=== PATIENT | male | born 1995 | race Caucasian/White ===

== ENCOUNTER 2017-02-01 19:47 | Emergency (ER) | payer OTHER ==
[~2017-02-01] VITALS: Ht 182.9 cm; Wt 114.0 kg
[2017-02-01 19:49] VITALS: TEMP 37.2; Ht 182.9 cm; Wt 114.0 kg
[2017-02-01] MEDS ORDERED: SODIUM CHLORIDE 0.9% 1000ML 2,000 ML IV STA (20:11)
[2017-02-01] MEDS ORDERED: METHYLPREDNISOLONE 125 MG VIAL IV STA (20:11)
[2017-02-01] MEDS ORDERED: DiphenhydrAMINE HCL 50 MG/ML VIAL IV STA (20:11)
[2017-02-01] MEDS ORDERED: FAMOTIDINE IV INJ 40 MG in DEXTROSE 5% 100ML 100 ML IV SCH (20:15)
--- NOTE | 2017-02-01 20:28 | DIAGNOSTIC IMAGING REPORT ---
CHEST ONE VIEW PORTABLE CLINICAL HISTORY: Shortness of breath. COMPARISON STUDY: No previous studies for comparison. FINDINGS: Lung volumes are normal. There is no pneumothorax or pleural effusion. Cardiac size is normal. Mediastinal contours are normal. There is no evidence of pulmonary edema. IMPRESSION: No acute cardiopulmonary findings. Electronically signed by: Gerald Medina M.D. 02/01/2017 8:27 PM Dictated Date/Time: 02/01/2017 8:27 PM
[2017-02-01 20:38] LABS: BASO % 0.1 %; BASO ABS # 0.01 K/uL (0-0.2); COMPLETE YES; EOS % 0.1 %; HEMATOCRIT 47.5 % (42-52); IG% 0.2 %; LYMPH ABS # 0.75 K/uL (1.2-3.4); MEAN CELL VOLUME 89.3 fL (80-100); MEAN CORPUSCULAR HEMOGLOBIN 32.1 pg (25-34); MEAN PLATELET VOLUME 10.9 fL (7.4-10.4); MONO % 4.3 %; NEUT % 89.3 %; PLATELET COUNT 152 K/uL (130-400); RED BLOOD COUNT 5.32 M/uL (4.7-6.1); WHITE BLOOD COUNT 12.47 K/uL (4.8-10.8)
[2017-02-01 21:00] LABS: ALKALINE PHOSPHATASE 77 U/L (45-117); ALT/SGPT 23 U/L (12-78); AST/SGOT 24 U/L (15-37); BLOOD UREA NITROGEN 16 mg/dl (7-18); BUN/CREATININE RATIO 13.2 (10-20); CARBON DIOXIDE 25 mmol/L (21-32); CHLORIDE 108 mmol/L (98-107); GLUCOSE 85 mg/dl (70-99); SODIUM 143 mmol/L (136-145)
[2017-02-01] MEDS ORDERED: PRED50TA PO (22:59)
[2017-02-01 23:18] VITALS: BP 113/53; PULSE 63; O2SAT 98
--- NOTE | 2017-02-02 01:29 | EMERGENCY ROOM VISIT NOTE ---
History Report prepared by Bubbaibcornelia: Chivo Anders Under the Supervision of: Dr. Patrice Pizarro D.O. First contact with patient: 19:52 Chief Complaint: SHORTNESS OF BREATH Stated Complaint: SOB,SWEATING,SHIVERING,HEADACHE History of Present Illness The patient is a 21 year old male who presents to the Emergency Room with complaints of constant shortness of breath starting earlier today. He reports his discomfort as a 4/10 in severity. The patient states that he was cooking chick peas and added elise to his pressure cooker. He reports that he then at the [employer] an hour later. He reports that later that day he started to notice a rash on his waistline which then spread to his legs, chest, and arm around noon. The patient reports that rash was itchy and tender to palpation. The patient states that he went walking for 2.5-3 hours in [facility]. He reports that he started to have a headache and felt short of breath. The patient states that when he got back to the house he felt dehydrated, hot, and experienced diaphoresis on his head and elbows. He reports that he took a cold shower, but started shivering. The patient states that he then wrapped himself in a blanket but then became hot again. The patient reports that he currently has a dry mouth but no problem swallowing. He denies any medical issues, medications, allergies, change in vision, fevers, chest pain, nausea, vomiting, diarrhea, pain with urination, and melena. Source of History: patient Onset: earlier today Position: other (global) Symptom Intensity: 4/10 Quality: other (06/03) Timing: resolved Associated Symptoms: + chills, + headache, + diaphoresis Review of Systems See HPI for pertinent positives & negatives. A total of 10 systems reviewed and were otherwise negative. Past Medical & Surgical Surgical Problems: (1) History of hip surgery (2) Status post genital surgery Family History FH: cancer FH: gallbladder disease FH: heart disease FHx: hypertension Social History Smoking Status: Never Smoker Smokeless Tobacco Use: No Alcohol Use: occasionally Drug Use: none Marital Status: single Housing Status: lives alone Occupation Status: [employer] student Current/Historical Medications Scheduled Prednisone (Prednisone), 50 MG PO DAILY Allergies Coded Allergies: No Known Allergies (Unverified , 02/01/17) Physical Exam Vital Signs Date Time Temp Pulse Resp B/P (MAP) Pulse Ox O2 Delivery O2 Flow Rate FiO2 02/01/17 23:18 63 18 113/53 98 Room Air 02/01/17 22:16 80 16 121/69 100 Room Air 02/01/17 20:20 100 Room Air 02/01/17 20:10 91 02/01/17 19:49 37.2 95 20 110/64 99 Room Air Physical Exam GENERAL: Sitting up in bed, alert, disheveled, well appearing, well nourished, no acute distress, non-toxic EYE EXAM: normal conjunctiva, PERRL and EOM's grossly intact OROPHARYNX: no exudate, no erythema, lips, buccal mucosa, and tongue normal and mucous membranes are moist NECK: supple, no nuchal rigidity, no adenopathy, non-tender. No stridor. LUNGS: Clear to auscultation. Normal chest wall mechanics HEART: no murmurs, S1 normal and S2 normal ABDOMEN: abdomen soft, non-tender, normo-active bowel sounds, no masses, no rebound or guarding. BACK: Back is symmetrical on inspection and there is no deformity, no midline tenderness, no CVA tenderness. SKIN: Diffusive raised erythema rash from abdomen to groin and flexor joints of upper and lower extremities. Blanches. No petechiae UPPER EXTREMITIES: upper extremities are grossly normal. LOWER EXTREMITIES: No pitting edema. NEURO EXAM: Normal sensorium, cranial nerves II-XII grossly intact, normal speech, no gross weakness of arms, no gross weakness of legs. Gross sensation intact. Medical Decision & Procedures ER Provider Diagnostic Interpretation: Radiology results as stated below per my review and the radiologist's interpretation: CHEST ONE VIEW PORTABLE CLINICAL HISTORY: Shortness of breath. COMPARISON STUDY: No previous studies for comparison. FINDINGS: Lung volumes are normal. There is no pneumothorax or pleural effusion. Cardiac size is normal. Mediastinal contours are normal. There is no evidence of pulmonary edema. IMPRESSION: No acute cardiopulmonary findings. Electronically signed by: Gerald Medina M.D. 02/01/2017 8:27 PM Dictated Date/Time: 02/01/2017 8:27 PM Laboratory Results 02/01/17 20:19 Red Blood Count 5.32, Mean Corpuscular Volume 89.3, Mean Corpuscular Hemoglobin 32.1, Mean Corpuscular Hemoglobin Concent 36.0, Mean Platelet Volume 10.9, Neutrophils (%) (Auto) 89.3, Lymphocytes (%) (Auto) 6.0, Monocytes (%) (Auto) 4.3, Eosinophils (%) (Auto) 0.1, Basophils (%) (Auto) 0.1, Neutrophils # (Auto) 11.14, Lymphocytes # (Auto) 0.75, Monocytes # (Auto) 0.53, Eosinophils # (Auto) 0.01, Basophils # (Auto) 0.01 02/01/17 20:19 Test 02/01/17 20:19 02/01/17 21:08 02/01/17 21:40 White Blood Count 12.47 K/uL (4.8-10.8) Red Blood Count 5.32 M/uL (4.7-6.1) Hemoglobin 17.1 g/dL (14.0-18.0) Hematocrit 47.5 % (42-52) Mean Corpuscular Volume 89.3 fL (80-100) Mean Corpuscular Hemoglobin 32.1 pg (25-34) Mean Corpuscular Hemoglobin Concent 36.0 g/dl (32-36) Platelet Count 152 K/uL (130-400) Mean Platelet Volume 10.9 fL (7.4-10.4) Neutrophils (%) (Auto) 89.3 % Lymphocytes (%) (Auto) 6.0 % Monocytes (%) (Auto) 4.3 % Eosinophils (%) (Auto) 0.1 % Basophils (%) (Auto) 0.1 % Neutrophils # (Auto) 11.14 K/uL (1.4-6.5) Lymphocytes # (Auto) 0.75 K/uL (1.2-3.4) Monocytes # (Auto) 0.53 K/uL (0.11-0.59) Eosinophils # (Auto) 0.01 K/uL (0-0.5) Basophils # (Auto) 0.01 K/uL (0-0.2) RDW Standard Deviation 37.6 fL (36.4-46.3) RDW Coefficient of Variation 11.6 % (11.5-14.5) Immature Granulocyte % (Auto) 0.2 % Immature Granulocyte # (Auto) 0.03 K/uL (0.00-0.02) Anion Gap 10.0 mmol/L (3-11) Est Creatinine Clear Calc Drug Dose 124.8 ml/min Estimated GFR () 98.2 Estimated GFR (Non- 84.7 BUN/Creatinine Ratio 13.2 (10-20) Calcium Level 9.0 mg/dl (8.5-10.1) Total Bilirubin 2.3 mg/dl (0.2-1) Aspartate Amino Transf (AST/SGOT) 24 U/L (15-37) Alanine Aminotransferase (ALT/SGPT) 23 U/L (12-78) Alkaline Phosphatase 77 U/L (45-117) Total Protein 7.2 gm/dl (6.4-8.2) Albumin 4.6 gm/dl (3.4-5.0) Chemistry Specimen Hemolysis Direct Bilirubin 0.3 mg/dl (0-0.2) Bedside Glucose 83 mg/dl (70-99) Laboratory results per my review. Medications Administered Medications (Trade) Dose Ordered Sig/Luis Route Start Time Stop Time Status Last Admin Dose Admin Sodium Chloride 2,000 ml @ 999 mls/hr Q2H1M STAT IV 02/01/17 20:11 02/01/17 22:11 DC 02/01/17 20:45 999 MLS/HR Diphenhydramine HCl (Benadryl Inj) 50 mg NOW STAT IV 02/01/17 20:11 02/01/17 20:12 DC 02/01/17 20:44 50 MG Methylprednisolone Sodium Succinate (Solu-Medrol IV) 125 mg NOW STAT IV 02/01/17 20:11 02/01/17 20:12 DC 02/01/17 20:44 125 MG Famotidine 40 mg/ Dextrose 104 ml @ 200 mls/hr NOW IV 02/01/17 20:15 02/01/17 23:48 DC 02/01/17 23:13 200 MLS/HR ECG Indication: SOB/dyspnea Rate (beats per minute): 77 Rhythm: sinus rhythm Findings: other (RR' in septal lead with flipped T wave in lead 3) ED Course ED COURSE: Vital signs were reviewed and showed normal. The patients medical record was reviewed The above diagnostic studies were performed and reviewed. ED treatments and interventions as stated above. 1955: The patient was evaluated in room B06. A complete history and physical examination was performed. 2011: Solu-Medrol IV 125 mg IV, Benadryl Injection 50 mg IV, Sodium Chloride 2000 ml @ 999 mls/hr IV. 2015: Famotidine 40 mg/ Dextrose 104 ml @ 200 mls/hr IV. 2300 Upon reevaluation, the patient is feeling better. I discussed the findings and the treatment plan with the patient. He verbalizes agreement and understanding. He was discharged home. Medical Decision The differential diagnosis includes: Etiologies such as allergic reaction, anaphylaxis, urticaria, Pineda-Jay syndrome, toxic epidermal necrolysis, erythema multiforme, cellulitis, as well as others were entertained. Patient is a 21-year-old male who presents the ER with a diffuse erythematous rash on his abdomen, groin and flexor surfaces. This is been going on since around lunchtime today. The only thing different that is done today is that he may chickpeas with elise from the garden. He doesn't mid to taking hot and cold , with mild headache and feeling slightly short of breath. On exam he has an extremely impressive rash. Vitals are unremarkable. CBC along with BMP was unremarkable. T bili was elevated at 2.3. Direct bili was only slightly elevated at 0.3. Patient was given IV fluids, Benadryl, steroids and famotidine. He had significant improvement of his rash on his abdomen with almost complete resolution. Uncertain of the true etiology of the rash however I do favor this likely related to the elise/plan that he cooked with from the garden which he was uncertain of. EKG showed flipped T-wave in lead 3. Patient was feeling slightly better. I do believe the symptoms are likely secondary to the rash/allergic reaction. Patient was discharged with steroids and instructed to follow-up with his PCP. Discussed with Pt concerning signs and symptoms to watch out for. Pt was instructed to follow up with their PCP and discussed with the patient their option to return to the ED at anytime for persistent or worsening symptoms. The appropriate anticipatory guidance and out- patient management, including indications for return to the emergency department , were explained at length to the patient and understood. Impression Primary Impression: Allergic reaction Scribe Attestation The scribe's documentation has been prepared under my direction and personally reviewed by me in its entirety. I confirm that the note above accurately reflects all work, treatment, procedures, and medical decision making performed by me. Departure Information Dispostion Home / Self-Care Prescriptions Prednisone (PREDNISONE) 50 Mg Tab 50 MG PO DAILY for 3 Days, #3 TAB Prov: Patrice Pizarro, DO 02/01/17 Referrals Vu Esparza M.D. (PCP) Forms HOME CARE DOCUMENTATION FORM, IMPORTANT VISIT INFORMATION Patient Instructions ED Allergic Reaction General Other, My [facility] Additional Instructions Please follow up with your primary care doctor with in the next 24 hours. Any worsening of your symptoms, please return to the ED immediately. This includes fevers grade and 100.4, worsening headache, change in vision, difficulty breathing, shortness of breath, chest pain or any other concerning signs or symptoms from your standpoint. Please take Benadryl 50 mg every 6-8 hours as needed for itching or spreading of the rash. Problem Qualifiers Primary Impression: Allergic reaction Encounter type: initial encounter Qualified Codes: T78.40XA - Allergy, unspecified, initial encounter
== END 2017-02-01 23:24 | disposition home or self-care (01) ==
LOC: C.EDB 19:49
DX: T78.40XA Allergy, unspecified, initial encounter (principal); X58.XXXA Exposure to other specified factors, initial encounter; Z98.890 Other specified postprocedural states; Z80.9 Family history of malignant neoplasm, unspecified; Z83.79 Family history of other diseases of the digestive system; Z82.49 Family history of ischemic heart disease and other diseases of the circulatory system